=== PATIENT | female | born 1935 | race Caucasian/White ===

== ENCOUNTER 2017-01-27 11:03 | Emergency (ER) | payer MEDICARE ==
[~2017-01-27] VITALS: Ht 165.1 cm; Wt 82.0 kg
[~2017-01-27 11:03] MED LIST: ADVAI250I PO; ASPI81; B12-1CHW CHEW; CALTTAB5; CELE40TA; CHOL50006 PO; CITA-48 PO; CLAR10TA7 PO; CLON.5; CLON0.5T PO; CRAN405C PO; MEVA40TA6; MONT10TA2 PO; MULT-65 PO; OMEP20CA5; OXYBXL5 PO; RANI150T PO
[2017-01-27 11:11] VITALS: BP 115/59; PULSE 71; RESP 16; TEMP 98.9; O2SAT 95
[2017-01-27 11:54] LABS: BLOOD, URINE NEG (NEG); GLUCOSE,URINE NEG (NEG); KETONE, URINE NEG (NEG); NITRITE,URINE POS (NEG)
[2017-01-27 11:57] LABS: METHOD OF COLLECTION CLEAN CATCH; URINE COLOR YELLOW (YELLW/STRAW)
[2017-01-27 11:58] LABS: BACTERIA, URINE MANY /hpf; COMMENT (UR) CULTURE INDICATED; CULTURE IF INDICATED CULTURE INDICATED; WBC, URINE 15-19 /hpf (0-5)
[2017-01-27] MEDS ORDERED: TYLE325T PO (12:02)
[2017-01-27] MEDS ORDERED: LOVA20TA PO (12:02)
[2017-01-27] MEDS ORDERED: FISHCAP4 PO (12:02)
[2017-01-27] MEDS ORDERED: MONT10TA4 PO (12:02)
[2017-01-27] MEDS ORDERED: RANI1TAB5 PO (12:02)
[2017-01-27] MEDS ORDERED: CALC1TAB87 PO (12:02)
[2017-01-27] MEDS ORDERED: VENL100T PO (12:02)
[2017-01-27] MEDS ORDERED: MULT-207 PO (12:02)
[2017-01-27] MEDS ORDERED: ADVA250A INH (12:02)
--- NOTE | 2017-01-27 12:07 | PD ---
HPI Chief Complaint: Complaint Time Seen by Provider: 11:53 Travel History International Travel<30 days: No Contact w/Intl Traveler<30days: No Traveled to known affect area: No History of Present Illness HPI PATIENT STATES THAT SHE DOES NOT HAVE "NORMAL" URINARY SYMPTOMS, SUCH PAIN WITH URINATION, FREQUENCY, URGENCY...INSTEAD SHE GETS LOW ABDOMINAL DISCOMFORT ONLY, STATES THAT SHE HAS URETHRAL STENOSIS THAT REQUIRES WIDENING EVERY SO MANY MONTHS AND THAT IS WHY SHE GETS FREQUENT UTI. PT STATES GOT REALLY "SICK" WITH CEFUROXIME BUT DID WELL WITH KEFLEX WHICH SHE WAS PRESCRIBED ON DEC 07 THIS YEAR. PFSH Past Medical History High Cholesterol: Yes Diminished Hearing: No ?: Not Past Surgical History Appendectomy: Yes Cholecystectomy: Yes Thoracic Surgery: Yes (LUNG SURGERY - NODULES REMOVED AND BIOPSY) Social History Alcohol Use: Yes (WINE [employer]IALY ) Tobacco Use: No Allergies-Medications (Allergen,Severity, Reaction): Coded Allergies: cefuroxime (Verified Allergy, Intermediate, nausea, 01/27/17) iodine (Unverified Allergy, Intermediate, 01/27/17) potassium iodide (Unverified Allergy, Intermediate, 01/27/17) povidone-iodine (Unverified Allergy, Intermediate, 01/27/17) sodium iodide (Unverified Allergy, Intermediate, 01/27/17) sulfamethoxazole (Verified Allergy, Intermediate, nausea, 01/27/17) trimethoprim (Verified Allergy, Intermediate, nausea, 01/27/17) Reported Meds & Prescriptions Reported Meds & Active Scripts Active Reported Lovastatin 20 Mg Tab 20 Mg PO HS Montelukast (Montelukast Sodium) 10 Mg Tab 10 Mg PO HS Fish Oil + D3 (Fish Oil-Cholecalciferol) 1,200-1,000 Mg-Unit Cap 1 Cap PO HS Calcium 600 with Vitamin D (Calcium Carbonate-Cholecalciferol) 600-400 mg-Unit Tab 1 Tab PO DAILY One Daily (Multiple Vitamin) 1 Tab 1 Tab PO DAILY Tylenol (Acetaminophen) 325 Mg Tab 650 Mg PO Q6H PRN Ranitidine 75 (Ranitidine HCl) 75 Mg Tab 150 Mg PO BID Take 30 to 60 minutes before eating food or drinking beverages that cause heartburn. Effexor (Venlafaxine HCl) 100 Mg Tab 100 Mg PO Q12H Advair Diskus Inh (Fluticasone-Salmeterol Inh) 250-50 Mcg/Blist Aer 1 Puff INH BID Rinse mouth after use. Review of Systems Except as stated in HPI: all other systems reviewed are Neg General / Constitutional: No: Fever Eyes: No: Visual changes HENT: No: Headaches Cardiovascular: No: Chest Pain or Discomfort Respiratory: No: Shortness of Breath Gastrointestinal: Positive: Abdominal Pain (SUPRAPUBIC) Genitourinary: No: Dysuria Musculoskeletal: No: Pain Skin: No Rash Neurologic: No: Weakness Psychiatric: No: Depression Endocrine: No: Polydipsia Hematologic/Lymphatic: No: Easy Bruising Physical Exam Narrative GENERAL: SKIN: Warm and dry. HEAD: Atraumatic. Normocephalic. EYES: Pupils equal and round. No scleral icterus. No injection or drainage. ENT: No nasal bleeding or discharge. Mucous membranes pink and moist. NECK: Trachea midline. No JVD. CARDIOVASCULAR: Regular rate and rhythm. RESPIRATORY: No accessory muscle use. Clear to auscultation. Breath sounds equal bilaterally. GASTROINTESTINAL: Abdomen soft, non-tender, nondistended. MUSCULOSKELETAL: Extremities without clubbing, cyanosis, or edema. No obvious deformities. NEUROLOGICAL: Awake and alert. No obvious cranial nerve deficits. Motor grossly within normal limits. Five out of 5 muscle strength in the arms and legs. Normal speech. PSYCHIATRIC: Appropriate mood and affect; insight and judgment normal. Data Data Last Documented VS Vital Signs Date Time Temp Pulse Resp B/P (MAP) Pulse Ox O2 Delivery O2 Flow Rate FiO2 01/27/17 11:11 98.9 71 16 115/59 (77) 95 Orders Orders Urinalysis - C+S If Indicated (01/27/17 11:41) Urine Culture (01/27/17 11:45) Nitrofurantoin Monohyd Macrocr (Macrobid (01/27/17 12:15) Labs Laboratory Tests Test 01/27/17 11:45 Urine Collection Type CLEAN CATCH Urine Color YELLOW Urine Turbidity SLIGHTY CLOUDY Urine pH 7.0 Urine Specific [place] 1.009 Urine Protein NEG mg/dL Urine Glucose (UA) NEG mg/dL Urine Ketones NEG mg/dL Urine Occult Blood NEG Urine Nitrite POS Urine Bilirubin NEG Urine Leukocyte Esterase MOD Urine WBC 15-19 /hpf Urine Bacteria MANY /hpf Microscopic Urinalysis Comment CULTURE INDICATED MDM Medical Decision Making Medical Screen Exam Complete: Yes Emergency Medical Condition: Yes Medical Record Reviewed: Yes Differential Diagnosis UTI V URINARY DISTENSION V URINARY INCONTINENCE V OVERACTIVE BLADDER Narrative Course CLINICALLY NO E/O BLADDER DISTENSION, WHILE UA WAS C/W UTI LIKELY DUE TO HER URETHRAL STENOSIS HX. Diagnosis Primary Impression: UTI Patient Instructions: General Instructions, Urinary Tract Infection in Women ( ED) Additional Instructions: PLEASE KEEP APPOINTMENT WITH UROLOGIST Scripts Nitrofurantoin Monohydrate Macrocrystals (Macrobid) 100 Mg Capsule 100 MG PO BID for Infection for 7 Days, #14 CAP 0 Refills Prov: Darren Koenig MD 01/27/17 Disposition: 01 DISCHARGE HOME Condition: Stable Darren Koenig MD Jan 27, 2017 12:07
[2017-01-27] MEDS ORDERED: MACR100C2 PO (12:12)
[2017-01-27] MEDS ORDERED: NITROFURANTOIN MONOHYD MACROCR 100 MG CAP PO ONE (12:45)
== END 2017-01-27 12:47 | disposition home or self-care (01) ==
LOC: PHED 11:03
DX: N39.0 Urinary tract infection, site not specified (principal); B96.1 Klebsiella pneumoniae [K. pneumoniae] as the cause of diseases classified elsewhere; N35.9 Urethral stricture, unspecified
CPT/HCPCS: 81001; 87077; 87086; 87186; 99283